=== PATIENT | female | born 1960 | race Caucasian/White ===

== ENCOUNTER 2018-02-13 17:00 | Inpatient (IN) | payer OTHER ==
[2018-02-13] MEDS ORDERED: HYDROmorphone 0.5 MG/0.5 ML SYRINGE IVPUSH ONE ×2 (17:11→18:19)
[2018-02-13] MEDS ORDERED: Metoclopramide 10 MG/2 ML SDV IVPUSH ONE (17:12)
[2018-02-13] MEDS ORDERED: Sodium Chloride 0.9% 1,000 ML IV SCH (17:15)
--- NOTE | 2018-02-13 17:16 | EDM.PDOC ---
ED HPI GENERAL MEDICAL PROBLEM - General Chief Complaint: Trauma Stated Complaint: [facility] Time Seen by Provider: 02/13/18 17:11 Source of Information: Reports: Patient, EMS History Limitations: Reports: No Limitations - History of Present Illness INITIAL COMMENTS - FREE TEXT/NARRATIVE: 57-year-old female brought to the ED by [facility] helicopter service. [place] [facility] [place]. She members the horse bucking but does not remember anything else about the injury in terms of landing on the ground. The next thing she remembers is she was being followed up with blankets by her friends. There was a balanced they were not reachable by any road. She was too injured to bring out but horse back. Therefore the helicopter was summoned. He was able to land a short ways away and they were able to get her on a stretcher and into the helicopter. Chief complaint is severe pain right scapula upper back right shoulder clavicle and right upper ribs. It's unclear if she had her head or lost consciousness. I suspect she may have had the wind knocked out of her. She has no injuries below the waist. Benign abdominal examination some pain to palpation right upper anterior ribs to 3 and 4. Mid clavicle is also tender. Distal clavicle over the before meals joint is tender. She has pain with any movement of the right shoulder. Pain over her right scapula but no solomon abrasions or contusions on her back and no evidence of any spinous process malalignment thoracic or lumbar spine. Onset: Today Onset Date: 02/13/18 Onset Time: 16:15 Duration: Hour(s): (One hour ago.) Location: Reports: Head, Neck, Chest (Posterior chest), Upper Extremity, Right ( Right shoulder and clavicle and upper ribs.) Quality: Reports: Ache, Throbbing Severity: Moderate Improves with: Reports: Rest Worsens with: Reports: Movement (Any movement of the right humerus causes pain in the shoulder and shoulder blade.) Context: Reports: Trauma (Bucked off a horse.). Denies: Activity, Exercise, Lifting, Sick Contact Associated Symptoms: Reports: No Other Symptoms, Nausea/Vomiting (Mild nausea.) . 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 (see below) Right Shoulder Pain Score (Numeric/FACES): 8 - Related Data Allergies Allergy/AdvReac Type Severity Reaction Status Date / Time aspirin Allergy Cannot Verified 02/13/18 17:33 Remember naldecon Allergy Cannot Uncoded 02/13/18 17:33 Remember Home Meds: Home Meds Ascorbate Calcium [Vitamin C] 02/13/18 [History] Citalopram Hydrobromide [Celexa] 02/13/18 [History] Ferrous Sulfate [Iron] 02/13/18 [History] Omeprazole 02/13/18 [History] Pramipexole Di-HCl [Mirapex] 2 mg PO BID 02/13/18 [History] Zolpidem Tartrate [Ambien] 5 mg PO ASDIRECTED PRN 02/13/18 [History] Past Medical History Neurological History: Reports: Other (See Below) (Restless leg syndrome.) Psychiatric History: Reports: Anxiety, Depression, Other (See Below) (Insomnia.) Hematologic History: Reports: Anemia, Iron Deficiency - Past Surgical History GI Surgical History: Reports: Bariatric Procedure (LAP-BAND procedure.) Female Surgical History: Reports: Section (2.) Review of Systems - Review of Systems Review Of Systems: See Below Constitutional: Denies: Chills, Diaphoresis, Weakness, Other Eyes: Denies: No Symptoms, Blindness, Blurred Vision, Drainage, Foreign Body Sensation, Inflammation, Pain, Photophobia Ears: Reports: No Symptoms Nose: Reports: No Symptoms Mouth/Throat: Reports: No Symptoms Respiratory: Reports: Shortness of Breath (Can take a full deep breath out without having pain in her right back) Cardiovascular: Reports: No Symptoms ( and upper ribs.) GI/Abdominal: Reports: No Symptoms Genitourinary: Reports: No Symptoms Musculoskeletal: Reports: Shoulder Pain (Right shoulder pain with any movement) Skin: Reports: No Symptoms ( i.e. attempt to abduct the shoulder causing significant pain in the shoulder joint from blade area.) Neurological: Reports: Confusion Psychiatric: Reports: No Symptoms (Confusion for what is happened to her i.e. amnesia for the event.) ED EXAM, GENERAL - Physical Exam Exam: See Below Exam Limited By: No Limitations General Appearance: Alert, WD/WN, Moderate Distress Eye Exam: Bilateral Eye: Normal Inspection Ears: Normal TMs Throat/Mouth: Normal Inspection, Normal Lips, Normal Oropharynx, Other (No injury to the oral cavity. No malocclusion.) Head: Atraumatic, Normocephalic, Other (No palpable deformities. She does appear to have a possible hematoma) Neck: Tender Lateral (Minimal tenderness right lateral cervical spine more at the juncture of the paraspinal muscles with the trapezius muscle on the right side.) Respiratory/Chest: Lungs Clear, Normal Breath Sounds, Chest Non-Tender, Respiratory Distress (Mild tachypnea. Not able to take a full deep breath.), Other (No subcutaneous emphysema.). No: Crackles, Rales, Rhonchi, Wheezing Peripheral Pulses: 2+: Radial (L), Radial (R), Posterior Tibial (L), Posterior Tibial (R), Dorsalis Pedis (L), Dorsalis Pedis (R) GI/Abdominal: Normal Bowel Sounds, Soft, Non-Tender, No Organomegaly, No Abnormal Bruit, No Mass, Pelvis Stable, Other (Multiple abdominal wall surgeries with multiple scars. There is ever evidence of intertrigo and lower abdominal skin folds) Back Exam: Other (When we set her up she had no obvious abrasions contusions or deformities to the thoracic or lumbar spine. Her pain is primarily over the right scaphoid and paraspinal musculature.) Extremities: Other (Limited range of motion of right arm especially abduction causes increased pain at the shoulder and scapular area. There is no fracture of humerus and she has normal pronation supination at the elbow with good distal pulses to her wrist.) Neurological: Alert ( Ankle.), Oriented, CN II-XII Intact, Normal Cognition, No Motor/Sensory Deficits Psychiatric: Anxious, Other Skin Exam: Warm, Dry, Intact (In obvious pain and discomfort.), Normal Color, No Rash EKG INTERPRETATION EKG Date: 02/13/18 Time: 19:18 Rhythm: NSR Rate (Beats/Min): 97 [place]: Normal P-Wave: Present (First-degree AV block.) QRS: Other (Mildly decreased voltage in the precordial leads. Chest) ST-T: Normal QT: Normal EKG Interpretation Comments: Borderline ECG Course - Vital Signs Last Recorded V/S: Last Vital Signs Temp 36.9 C 02/13/18 17:18 Pulse 79 02/13/18 17:18 Resp 13 02/13/18 17:18 BP 145/78 H 02/13/18 17:18 Pulse Ox 97 02/13/18 17:18 - Orders/Labs/Meds Orders: Active Orders 24 hr Category Date Time Status Shoulder Comp Rt [CR] Stat Exams 02/13/18 17:15 Taken Sodium Chloride 0.9% [Normal Saline] 1,000 ml Med 02/13/18 17:15 Active IV ASDIRECTED Sodium Chloride 0.9% [Normal Saline] 100 ml Med 02/13/18 19:00 Active IV ASDIRECTED Medication Orders Sodium Chloride (Normal Saline) 1,000 mls @ 150 mls/hr IV ASDIRECTED HARVEY Last Admin: 02/13/18 17:57 Dose: 150 mls/hr Sodium Chloride (Normal Saline) 100 mls @ 60 mls/hr IV ASDIRECTED HARVEY Labs: Laboratory Tests 02/13/18 02/13/18 Range/Units 17:15 17:15 WBC 10.94 H (3.98-10.04) K/mm3 RBC 4.33 (3.98-5.22) M/mm3 Hgb 12.7 (11.2-15.7) gm/L Hct 39.7 (34.1-44.9) % MCV 91.7 (79.4-94.8) fl MCH 29.3 (25.6-32.2) pg MCHC 32.0 L (32.2-35.5) g/dl RDW Std Deviation 47.5 H (36.4-46.3) fL Plt Count 263 (182-369) K/mm3 MPV 9.9 (9.4-12.3) fl Neutrophils % (Manual) 84 H (40-60) % Band Neutrophils % 0 (0-10) % Lymphocytes % (Manual) 12 L (20-40) % Atypical Lymphs % 0 % Monocytes % (Manual) 4 (2-10) % Eosinophils % (Manual) 0 L (0.7-5.8) % Basophils % (Manual) 0 L (0.1-1.2) Platelet Estimate Adequate Plt Morphology Comment Normal RBC Morph Comment Normal Sodium 138 (136-145) mEq/L Potassium 4.0 (3.5-5.1) mEq/L Chloride 105 (98-107) mEq/L Carbon Dioxide 27 (21-32) mEq/L Anion Gap 10.0 (5-15) BUN 14 (7-18) mg/dL Creatinine 0.9 (0.55-1.02) mg/dL Est Cr Clr Drug Dosing 60.27 mL/min Estimated GFR (MDRD) > 60 (>60) mL/min BUN/Creatinine Ratio 15.6 (14-18) Glucose 118 H (74-106) mg/dL Calcium 8.9 (8.5-10.1) mg/dL Total Bilirubin 0.3 (0.2-1.0) mg/dL AST 19 (15-37) U/L ALT 24 (14-59) U/L Alkaline Phosphatase 86 (46-116) U/L Total Protein 7.4 (6.4-8.2) g/dl Albumin 4.0 (3.4-5.0) g/dl Globulin 3.4 gm/dL Albumin/Globulin Ratio 1.2 (1-2) Meds: Medications Generic Name Dose Route Start Last Admin Trade Name Freq PRN Reason Stop Dose Admin Sodium Chloride 1,000 mls @ 150 mls/hr 02/13/18 17:15 02/13/18 17:57 Normal Saline IV 150 mls/hr ASDIRECTED HARVEY Administration Sodium Chloride 100 mls @ 60 mls/hr 02/13/18 19:00 Normal Saline IV ASDIRECTED HARVEY Discontinued Medications Generic Name Dose Route Start Last Admin Trade Name Ira PRN Reason Stop Dose Admin Hydromorphone HCl 0.5 mg 02/13/18 17:11 02/13/18 17:57 Dilaudid IVPUSH 02/13/18 17:12 0.5 mg ONETIME ONE Administration Hydromorphone HCl 1 mg 02/13/18 18:19 02/13/18 18:59 Dilaudid IVPUSH 02/13/18 18:20 1 mg ONETIME ONE Administration Iopamidol 100 ml 02/13/18 18:49 Isovue-370 (76%) IVPUSH 02/13/18 18:50 ONETIME ONE Iopamidol 50 ml 02/13/18 18:49 Isovue-370 (76%) IVPUSH 02/13/18 18:50 ONETIME ONE Metoclopramide HCl 10 mg 02/13/18 17:12 02/13/18 17:57 Reglan IVPUSH 02/13/18 17:13 10 mg ONETIME ONE Administration Pramipexole Dihydrochloride 1 mg 02/13/18 18:21 Mirapex PO 02/13/18 18:22 ONETIME ONE Sodium Chloride 10 ml 02/13/18 18:49 Saline Flush FLUSH 02/13/18 18:50 ONETIME ONE - Radiology Interpretation Free Text/Narrative:: 57-year-old female presents to the ED after being [place]ed [place] [facility] [place]. They were in an area that was not amenable to reaching her by ground ambulance. Therefore the helicopter service was utilized to provide rescue. They were able to land very close to the patient. With numerous personnel they were able to load her up onto a gurney and get her into the helicopter. She has received fentanyl 100 g intravenously en route to the hospital which has helped alleviate some of her pain. On examination she has amnesia for the event and I'm unclear whether she had the wind knocked out of her she actually had a closed head injury. She seems to have mild hematoma right occipital scalp No blood behind the eardrums. She does not appear to have any intraoral injuries or injuries to the tongue. Anterior neck and facial structures are normal. She has marked pain to palpation on the superior aspect of the right trapezius levator scapula and the shoulder blade itself. Any movement particularly abduction of the shoulder causes increased pain in the shoulder and scapular area. There is pain over the distal clavicle before meals joint and upper ribs to 3 and 4 on the right side without any obvious subcutaneous emphysema. Good air entry to both lung humphrey. Benign abdominal examination. Pelvis examination with full range of motion of her lower extremities with internal/external rotation fu and no pain in her back or pelvis. No pain to palpation of her lumbar or thoracic spine except just to the right of the mid thoracic spine and over the scapula on the right side. Suspects fracture body of scapula. Plan CT head CT neck CT chest plain films of the right shoulder. Give Dilaudid 0.5 mg IV in the ED with Reglan 10 mg IV. Labs will be collected. IV will be normal saline at 150 mils per hour.ll - Re-Assessments/Exams Free Text/Narrative Re-Assessment/Exam: 02/13/18 18:23 CT head is within normal limits showing no intracranial bleeding or mass effect. No midline shift. No skull fractures identified. CT cervical spine reveals some loss of normal lordotic curvature. Advanced degenerative changes particularly at C5-C6 disc spaces. No fractures or malalignment are appreciated. The chest done without contrast reveals a severely comminuted fracture midshaft of the clavicle. The shoulder blade or scapula is normal. There are fractures of the upper posterior lateral ribs I believe 3,4 and 5. There is minimal contusion to the long under the rib fractures. No pneumothorax. On close inspection of the great vessels without contrast does appear there might be some fluid outside the arch of the aorta and further down the ascending aorta or thoracic aorta. Therefore CT of the chest will be repeated with IV contrast to achieve an aortogram. Patient is having some central chest discomfort at this time. She is asking for more analgesia. Will be given Dilaudid 1 mg IV. Secondly she is asking to have her Mirapex 1 mg given as she has severe restless leg syndrome takes this medication 4 times daily. This will give with a small sip of water. 02/13/18 18:27 Labs reveal a white count that is mildly elevated at 10.94. Differential is pending. Hemoglobin is 12.7 with hematocrit of 39.7. Platelet count is 263,000. Sodium is 138 with a potassium of 4.0. Coronal 5 with a bicarbonate of 27. And a gap is 10.0. BUN is 14. Creatinine is 0.9. Estimated GFR is greater than 60. No contraindication to IV contrast. Glucose is 118. Calcium is 8.9. Liver function is normal. 02/13/18 19:10 CT chest with contrast was completed. Dr. Wiggins has read this scan. He reports previously noted soft tissue density next to the ascending aorta and arch of aorta is felt to represent fluid and appears separate from the aortic arch likely represents a slightly superior extension of the pericardial recess. An incidental finding. Aorta shows no other abnormality pulmonary arteries appear to be within normal limits other portions of the mediastinal structures are normal. Kidneys are symmetric in enhancement without any contrast leak. Rib fractures and right clavicle fracture are again appreciated. Patient is much more comfortable with the Dilaudid 1 mg IV. We do not have any Mirapex in the hospital and her friends are bringing her medication to the hospital at this time. [place] and the plan will be to admit her to the hospital under the care of Dr. Caicedo trauma surgeon. I have spoken with him and the plan will be to admit to the med surgery floor on telemetry. Plan will be to have Dr. Lau see her in consultation tomorrow with a possible view to pinning of her right clavicular fracture. I did speak with Dr. Lau in this regard and he will tentatively see her tomorrow on the rain. Departure - Departure Time of Disposition: 19:45 Disposition: Admitted As Inpatient 67 Condition: Fair Clinical Impression: Multiple trauma, Contusion of right shoulder or upper extremity Fracture, ribs Qualifiers: Encounter type: initial encounter Rib fracture type: multiple ribs Fracture type: closed Laterality: right Qualified Code(s): S22.41XA - Multiple fractures of ribs, right side, initial encounter for closed fracture - Discharge Information Forms: ED Department Discharge - My Orders Last 24 Hours: My Active Orders 02/13/18 17:15 Shoulder Comp Rt [CR] Stat Sodium Chloride 0.9% [Normal Saline] 1,000 ml IV ASDIRECTED 02/13/18 19:00 Sodium Chloride 0.9% [Normal Saline] 100 ml IV ASDIRECTED - Assessment/Plan Last 24 Hours: My Active Orders 02/13/18 17:15 Shoulder Comp Rt [CR] Stat Sodium Chloride 0.9% [Normal Saline] 1,000 ml IV ASDIRECTED 02/13/18 19:00 Sodium Chloride 0.9% [Normal Saline] 100 ml IV ASDIRECTED
--- NOTE | 2018-02-13 17:59 | CT ---
Head CT Technique: Multiple axial sections through the brain were obtained. Intravenous contrast was not utilized. Comparison: No previous intracranial imaging. Findings: Ventricles along with basal cisterns and sulci over the convexities are within normal limits for the patient's age. No abnormal parenchymal densities are seen. No evidence of intracranial hemorrhage. No midline shift or mass effect is seen. No acute calvarial abnormality is seen on bone window settings. Visualized sinuses are clear. Impression: 1. Nothing acute is identified on noncontrast head CT exam. Diagnostic code #1
--- NOTE | 2018-02-13 18:03 | CT ---
CT cervical spine Technique: Multiple axial sections through the cervical spine were obtained from above C1 inferiorly to the top of T2. Reconstructed sagittal and coronal images were reviewed. Comparison: No previous study. Findings: Severe disc space narrowing is noted at C4-C5, C5-C6, C6-C7 as well as moderate disc space narrowing C7-T1 and T1-T2. Small disc protrusion is seen into the superior endplate of T2 which appears to be old. Cyst is noted within the superior endplate of C7. Slight vacuum phenomena is seen within the C6-C7 disc. Posterior osteophytes are noted at C4-C5 through C6-C7. Degenerative apophyseal change is noted which is most severe at C7-T1 causing slight spondylolisthesis. Posterior skull base is intact. Vertebral bodies and posterior arches are intact with no fracture being seen. Mild right-sided neural foraminal stenosis is noted at C5-C6. Moderate bilateral neural foraminal stenosis noted at C4-C5. No bony central canal stenosis is seen. Degenerative spurring is noted within the uncovertebral joints at C4-C5, C5-C6 and C6-C7. Mild degenerative change is also noted within the temporomandibular joints. Impression: 1. Diffuse degenerative change as noted above. 2. No acute fracture or acute subluxation is seen. Diagnostic code #2
--- NOTE | 2018-02-13 18:11 | CT ---
CT thoracic spine Technique: Multiple axial sections through the thoracic spine were obtained. Reconstructed sagittal and coronal images were reviewed. Findings: Disc space narrowing within the cervical spine is seen. Mild scattered areas of disc space narrowing as well as anterior osteophytes are seen within the thoracic spine. Vertebral body heights are maintained. No fracture is seen within the thoracic spine. No abnormal subluxation is seen. Mild scattered degenerative change within the apophyseal joints is seen. Scoliosis is also noted. Impression: 1. Degenerative change and scoliosis. 2. Nothing acute is seen on CT study of the thoracic spine. Diagnostic code #2
--- NOTE | 2018-02-13 18:11 | CT ---
CT chest Technique: Multiple axial sections through the chest were obtained. Intravenous contrast was not utilized which limits evaluation of the great vessels. Findings: Right clavicular fracture is seen which is slightly comminuted and mildly displaced. Mildly displaced right-sided rib fracture is seen within the fourth and fifth ribs. Possible minimal nondisplaced fracture within the sixth rib. Mediastinum and hilar regions show no adenopathy or mass. Very minimal coronary artery calcification is seen. Lap band is present. There is a low-density area seen next to the aortic arch. Uncertain if this is vascular related and contrast-enhanced study as an aortogram is recommended. Slight parenchymal density is noted within the right upper lung felt compatible with minimal contusion as this is in the area of rib fractures. Lungs otherwise are clear. No pleural effusions or pneumothorax is seen. Very small subpleural nodule measuring 3.8 mm is seen within the left base. Impression: 1. Right clavicular fracture. 2. 2 or possibly 3 right-sided rib fractures within the fourth, fifth and possibly sixth rib. 3. Slight parenchymal contusion within the lung adjacent to the rib fractures. 4. 3.8 mm subpleural nodule within the left base. If patient is not a smoker this can be ignored. If patient is a smoker, recommend noncontrast chest CT in one year. 5. Small soft tissue density adjacent to the aortic arch and uncertain if this is vascular related. If patient has no contraindications to contrast, recommend contrast CT as an aortogram study to further evaluate. Diagnostic code #5
[2018-02-13] MEDS ORDERED: Pramipexole 0.5 MG Tab PO ONE (18:21)
[2018-02-13] MEDS ORDERED: Iopamidol 755 Mg/ML 100 ML Bottle IVPUSH ONE (18:49)
[2018-02-13] MEDS ORDERED: Iopamidol 755 MG/ML 50 ML Bottle IVPUSH ONE (18:49)
[2018-02-13] MEDS ORDERED: Sodium Chloride 0.9% 10 ML Syringe FLUSH ONE (18:49)
--- NOTE | 2018-02-13 18:56 | CT ---
CT chest (with contrast) Technique: Multiple axial sections were obtained through the chest with intravenous contrast. Study performed as an aortogram exam. Findings: Soft tissue density is seen next to the ascending aorta. This is felt to represent fluid and appears separate from the aortic arch and likely represents a slightly superior extension of the pericardial recess. This is an incidental finding. Aorta shows no abnormality. Pulmonary arteries appear within normal limits. Other portions of the mediastinal structures are normal. Kidneys are symmetric in enhancement. Rib fractures and right clavicle fracture are again noted. Slight pulmonary contusion is again seen. Small subpleural nodule within the left base is again noted. Impression: 1. Previously noted soft tissue density is separate from the ascending aorta and is felt compatible with superior extent of the normal pericardial recess containing fluid. This is a normal variant. 2. No great vessel injury is seen. Other findings are noted as described on previous noncontrast chest CT. Diagnostic code #2
[2018-02-13] MEDS ORDERED: Sodium Chloride 0.9% 100 ML IV SCH (19:00)
[2018-02-13] MEDS: HYDROmorphone 0.5 MG/0.5 ML SYRINGE IVPUSH PRN (20:58)
--- NOTE | 2018-02-13 20:59 | PCM.PN ---
- General Info Date of Service: 02/13/18 - Patient Data Vitals - Most Recent: Last Vital Signs Temp 98.4 F 02/13/18 17:18 Pulse 85 02/13/18 20:53 Resp 18 02/13/18 20:53 BP 115/71 02/13/18 20:53 Pulse Ox 98 02/13/18 20:53 Weight - Most Recent: 108.862 kg Lab Results Last 24 Hours: Laboratory Results - last 24 hr 02/13/18 02/13/18 Range/Units 17:15 17:15 WBC 10.94 H (3.98-10.04) K/mm3 RBC 4.33 (3.98-5.22) M/mm3 Hgb 12.7 (11.2-15.7) gm/L Hct 39.7 (34.1-44.9) % MCV 91.7 (79.4-94.8) fl MCH 29.3 (25.6-32.2) pg MCHC 32.0 L (32.2-35.5) g/dl RDW Std Deviation 47.5 H (36.4-46.3) fL Plt Count 263 (182-369) K/mm3 MPV 9.9 (9.4-12.3) fl Neutrophils % (Manual) 84 H (40-60) % Band Neutrophils % 0 (0-10) % Lymphocytes % (Manual) 12 L (20-40) % Atypical Lymphs % 0 % Monocytes % (Manual) 4 (2-10) % Eosinophils % (Manual) 0 L (0.7-5.8) % Basophils % (Manual) 0 L (0.1-1.2) Platelet Estimate Adequate Plt Morphology Comment Normal RBC Morph Comment Normal Sodium 138 (136-145) mEq/L Potassium 4.0 (3.5-5.1) mEq/L Chloride 105 (98-107) mEq/L Carbon Dioxide 27 (21-32) mEq/L Anion Gap 10.0 (5-15) BUN 14 (7-18) mg/dL Creatinine 0.9 (0.55-1.02) mg/dL Est Cr Clr Drug Dosing 60.27 mL/min Estimated GFR (MDRD) > 60 (>60) mL/min BUN/Creatinine Ratio 15.6 (14-18) Glucose 118 H (74-106) mg/dL Calcium 8.9 (8.5-10.1) mg/dL Total Bilirubin 0.3 (0.2-1.0) mg/dL AST 19 (15-37) U/L ALT 24 (14-59) U/L Alkaline Phosphatase 86 (46-116) U/L Total Protein 7.4 (6.4-8.2) g/dl Albumin 4.0 (3.4-5.0) g/dl Globulin 3.4 gm/dL Albumin/Globulin Ratio 1.2 (1-2) Med Orders - Current: Current Medications Hydrocodone Bitart/Acetaminophen ([place] 325-5 Mg) 1 tab PO Q4H PRN PRN Reason: pain Citalopram Hydrobromide (Celexa) 20 mg PO DAILY [facility] Hydromorphone HCl (Dilaudid) 0.5 mg IVPUSH Q2HR PRN PRN Reason: Pain Sodium Chloride (Normal Saline) 1,000 mls @ 150 mls/hr IV ASDIRECTED [facility] Last Admin: 02/13/18 17:57 Dose: 150 mls/hr Sodium Chloride (Normal Saline) 100 mls @ 60 mls/hr IV ASDIRECTED [facility] Last Admin: 02/13/18 19:26 Dose: 60 mls/hr Lactated Ringer's (Ringers, Lactated) 1,000 mls @ 100 mls/hr IV ASDIRECTED [facility] Ketorolac Tromethamine (Toradol) 30 mg IVPUSH Q6H [facility] Stop: 02/14/18 20:01 Ondansetron HCl (Zofran) 4 mg IVPUSH Q8H PRN PRN Reason: Nausea Pramipexole Dihydrochloride (Mirapex) 0.125 mg PO DAILY [facility] Pramipexole Dihydrochloride (Mirapex) 0.25 mg PO DAILY@1200 [facility] Pramipexole Dihydrochloride (Mirapex) 0.375 mg PO BEDTIME [facility] Discontinued Medications Hydromorphone HCl (Dilaudid) 0.5 mg IVPUSH ONETIME ONE Stop: 02/13/18 17:12 Last Admin: 02/13/18 17:57 Dose: 0.5 mg Hydromorphone HCl (Dilaudid) 1 mg IVPUSH ONETIME ONE Stop: 02/13/18 18:20 Last Admin: 02/13/18 18:59 Dose: 1 mg Iopamidol (Isovue-370 (76%)) 100 ml IVPUSH ONETIME ONE Stop: 02/13/18 18:50 Last Admin: 02/13/18 18:30 Dose: 100 ml Iopamidol (Isovue-370 (76%)) 50 ml IVPUSH ONETIME ONE Stop: 02/13/18 18:50 Last Admin: 02/13/18 18:30 Dose: 20 ml Metoclopramide HCl (Reglan) 10 mg IVPUSH ONETIME ONE Stop: 02/13/18 17:13 Last Admin: 02/13/18 17:57 Dose: 10 mg Pramipexole Dihydrochloride (Mirapex) 1 mg PO ONETIME ONE Stop: 02/13/18 18:22 Last Admin: 02/13/18 19:32 Dose: Not Given Sodium Chloride (Saline Flush) 10 ml FLUSH ONETIME ONE Stop: 02/13/18 18:50 Last Admin: 02/13/18 18:30 Dose: 10 ml - Problem List Review Problem List Initiated/Reviewed/Updated: Yes - My Orders Last 24 Hours: My Active Orders 02/13/18 20:00 Ketorolac [Toradol] 30 mg IVPUSH Q6H 02/13/18 20:32 Up to Chair [RC] ASDIRECTED 02/13/18 20:34 SCD [Sequential Compression Device] [OM.PC] Routine 02/13/18 20:41 HYDROmorphone [Dilaudid] 0.5 mg IVPUSH Q2HR PRN 02/13/18 20:44 Notify Provider Consults [RC] ASDIRECTED 02/13/18 20:45 Lactated Ringers [Ringers, Lactated] 1,000 ml IV ASDIRECTED Pramipexole 1 - 3 tab PO ASDIRECTED 02/13/18 20:48 Acetaminophen/HYDROcodone [[place] 325-5 MG] 1 tab PO Q4H PRN 02/13/18 20:49 Ondansetron [Zofran] 4 mg IVPUSH Q8H PRN 02/13/18 21:00 Pramipexole [Mirapex] 0.375 mg PO BEDTIME 02/14/18 05:00 AMYLASE [CHEM] Routine CBC WITH AUTO DIFF [HEME] Routine CMP [COMPREHENSIVE METABOLIC PN,CMP] [CHEM] Routine 02/14/18 08:00 Chest 1V Frontal [CR] Routine 02/14/18 09:00 Citalopram [Celexa] 20 mg PO DAILY 02/14/18 12:00 Pramipexole [Mirapex] 0.25 mg PO DAILY@1200 02/14/18 20:44 Consult to Physician [CONS] Routine 02/14/18 Breakfast Clear Liquid Diet [DIET] - Plan Plan:: H&P dictated JYOTI
[2018-02-13] MEDS: Ketorolac 30 MG/ML SDV IVPUSH SCH (22:42)
[2018-02-13] MEDS: Lactated Ringers 1,000 ML IV SCH (22:57)
[2018-02-13] MEDS: Ondansetron 4 MG/2 ML SDV IVPUSH PRN (22:58)
[2018-02-13] MEDS: Pramipexole 0.25 MG Tab PO SCH (23:05)
[2018-02-13] MEDS: Acetaminophen/HYDROcodone 325-5 MG Tab PO PRN (23:53)
[2018-02-14] MEDS: Ketorolac 30 MG/ML SDV IVPUSH SCH ×4 (02:25→15:14)
--- NOTE | 2018-02-14 02:32 | HP ---
DATE OF ADMISSION: 02/13/2018 HISTORY OF PRESENT ILLNESS: A 57-year-old who was flown out of [facility] after a horse accident by [employer]. The horse shied and twisted to the left, and she was thrown off to the right and landed on her right shoulder and right side. There was some evidence that she had amnesia around the event and possibly some loss of consciousness. She is complaining of pain in the right scapula and right shoulder. She underwent a complete evaluation with a CT of head, neck, chest, and this showed a swelling or fluid collection around the organ which a repeat CT scan with contrast was done showing it to be a fluid that seemed to be separate from the aortic arch. She was found to have fractures of the midshaft of the clavicle on the right and fracture of the upper part of the lateral ribs 3, 4, and 5. There was minimal contusion to the lung. No pneumothorax. Head CT was unremarkable. The patient because of the pain was admitted to the hospital. PAST MEDICAL HISTORY: Restless legs syndrome, some insomnia, anemia and iron-deficiency anemia, history of Lap-Band for treatment of her obesity. PAST SURGICAL HISTORY: Includes in addition to a and the Lap Band, cholecystectomy. REVIEW OF SYSTEMS: Denies any shortness of breath, cough, hoarseness, wheezing, fainting, weakness, numbness, convulsions, diarrhea, abdominal pain, lower extremity pain, left arm pain. No smoking. No drinking. PHYSICAL EXAMINATION: GENERAL: Reveals a patient in moderate pain. VITAL SIGNS: Temperature 36, pulse 79, respirations 13, and blood pressure 145/78. EYES: Sclerae are white. Extraocular muscle motion normal. ORAL CAVITY: Healthy. NECK: Supple. No nodes. No thyromegaly. LUNGS: Clear. No rales, rhonchi, fremitus, dullness. Tenderness over the right lateral ribs. The right clavicle is tender. HEART: Tones regular rate. No S3, S4, or jugular venous distention. ABDOMEN: Soft. No tenderness, guarding, or rebound. EXTREMITIES: Lower extremities; no angulation deformities. Upper extremities; right arm is swathed. Left arm and shoulder unremarkable. SKIN: Warm and dry. NEUROLOGIC: Cranial nerves 3 through 12 intact. No sensorineural deficit. She is alert and cooperative, but some amnesia around the event. ASSESSMENT: 1. Trauma with rib fractures 3, 4, and 5 on the right, nondisplaced. 2. Clavicle fracture on the right. 3. Concussion. PLAN: To admit the patient for pain control. Have the patient seen by Ortho concerning clavicle fracture and I have discussed it with her. MMODAL /[id number]
[2018-02-14] MEDS: HYDROmorphone 0.5 MG/0.5 ML SYRINGE IVPUSH PRN ×3 (02:38→12:50)
[2018-02-14] MEDS: Acetaminophen/HYDROcodone 325-5 MG Tab PO PRN ×4 (07:00→21:35)
--- NOTE | 2018-02-14 07:25 | CR ---
Right shoulder: Three views of the right shoulder were obtained. Slightly comminuted and mildly displaced mid right clavicle fracture is seen. Rib fractures that were seen on CT exam are partially visualized on this exam. Glenohumeral joint is normal. No additional abnormality is seen. Impression: 1. Right clavicle fracture as well as partially visualized rib fractures. 2. No additional abnormality is noted. Diagnostic code #3
--- NOTE | 2018-02-14 09:04 | PCM.CONS ---
<Fern Dodson - Last Filed: 02/14/18 16:32> H&P History of Present Illness - General Date of Service: 02/14/18 Admit Problem/Dx: Admission Diagnosis/Problem Admission Diagnosis/Problem Multiple trauma to chest Source of Information: Patient, Other (ED and surgeon notes) History Limitations: Reports: No Limitations - History of Present Illness Initial Comments - Free Text/Narative: The pt was bucked off her horse yesterday afternoon when riding in the [facility] with a group of friends. The pt was transported by helicopter from the [facility] to the ED for care. Thorough evaluation and imaging was completed and the pt was noted to have a right clavicle fracture. The pt reports this is her first major injury to her right upper extremity. She is right-handed. Right clavicle pain is increased with mobility and improvements are noted with rest, sling use and PO, as well as IV, pain medication. She had complaints of "rib pain" today also. The pt denied numbness, tingling at the RUE. She denied right elbow or wrist pain. She denied LUE discomfort. She had no complaints at BLE. The pt stated she has ambulated in her room with nursing staff. Right Shoulder Pain Score (Numeric/FACES): 8 - Related Data Allergies/Adverse Reactions: Allergies Allergy/AdvReac Type Severity Reaction Status Date / Time aspirin Allergy Cannot Verified 02/13/18 17:33 Remember dextromethorphan Allergy Cannot Verified 02/14/18 15:13 Remember guaifenesin Allergy Cannot Verified 02/14/18 15:13 Remember Home Medications: Home Meds Ascorbate Calcium [Vitamin C] 500 mg PO DAILY 02/13/18 [History] Citalopram Hydrobromide [Celexa] 20 mg PO DAILY 02/13/18 [History] Ferrous Sulfate [Iron] 650 mg PO DAILY 02/13/18 [History] Omeprazole 20 mg PO DAILY 02/13/18 [History] Pramipexole [Mirapex] 0.125 - 0.375 tab PO ASDIRECTED 02/13/18 [History] Zolpidem Tartrate [Ambien] 5 mg PO BEDTIME PRN 02/14/18 [History] Past Medical History Respiratory History: Reports: Sleep Apnea Other Respiratory History: uses c-pap Gastrointestinal History: Reports: GERD Neurological History: Reports: Other (See Below) Psychiatric History: Reports: Anxiety, Depression Hematologic History: Reports: Anemia, Iron Deficiency - Infectious Disease History Infectious Disease History: Reports: Chicken Pox, Measles, Mumps - Past Surgical History Respiratory Surgical History: Reports: None GI Surgical History: Reports: Bariatric Procedure Other GI Surgeries/Procedures: lap band-2014 Female Surgical History: Reports: Section Social & Family History - Family History Family Medical History: Noncontributory - Tobacco Use Smoking Status *Q: Never Smoker Second Hand Smoke Exposure: No - Caffeine Use Caffeine Use: Reports: Tea - Alcohol Use Days Per Week of Alcohol Use: 1 Number of Drinks Per Day: 0 Total Drinks Per Week: 0 Date of Last Drink: 02/13/18 Time of Last Drink: 14:00 - Recreational Drug Use Recreational Drug Use: No H&P Review of Systems - Review of Systems: Review Of Systems: ROS reveals no pertinent complaints other than HPI. (As per surgeon evsharla. The pt denied other musculoskeletal complaints today aside from those listed in HPI.) Musculoskeletal: Reports: Other (See HPI.) Exam - Exam Exam: See Below - Vital Signs Vital Signs: Last Vital Signs Temp 98.1 F 02/14/18 02:19 Pulse 84 02/14/18 02:19 Resp 18 02/14/18 02:19 BP 117/54 L 02/14/18 02:19 Pulse Ox 96 02/14/18 02:19 Weight: 108.862 kg - Exam General: Alert, Cooperative, Other (Resting in bed with head of bed elevated.) Extremities: Other (Formal right shoulder motion not assessed. C-spine, right wrist and hand motion WFL. NVS intact for BUE and BLE. Tenderness and swelling at right clavicle. No tenderness noted at right elbow, wrist, hand.) - Patient Data Lab Results Last 24 hrs: Laboratory Results - last 24 hr 02/13/18 02/13/18 02/14/18 Range/Units 17:15 17:15 06:02 WBC 10.94 H 6.95 (3.98-10.04) K/mm3 RBC 4.33 3.72 L (3.98-5.22) M/mm3 Hgb 12.7 10.8 L (11.2-15.7) gm/L Hct 39.7 34.8 (34.1-44.9) % MCV 91.7 93.5 (79.4-94.8) fl MCH 29.3 29.0 (25.6-32.2) pg MCHC 32.0 L 31.0 L (32.2-35.5) g/dl RDW Std Deviation 47.5 H 48.2 H (36.4-46.3) fL Plt Count 263 221 (182-369) K/mm3 MPV 9.9 10.1 (9.4-12.3) fl Neut % (Auto) 69.2 (34.0-71.1) % Lymph % (Auto) 22.9 (19.3-51.7) % [place] % (Auto) 6.3 (4.7-12.5) % Eos % (Auto) 1.4 (0.7-5.8) Baso % (Auto) 0.1 (0.1-1.2) % Neut # (Auto) 4.80 (1.56-6.13) K/mm3 Lymph # (Auto) 1.59 (1.18-3.74) K/mm3 [place] # (Auto) 0.44 H (0.24-0.36) K/mm3 Eos # (Auto) 0.10 (0.04-0.36) K/mm3 Baso # (Auto) 0.01 (0.01-0.08) K/mm3 Neutrophils % (Manual) 84 H (40-60) % Band Neutrophils % 0 (0-10) % Lymphocytes % (Manual) 12 L (20-40) % Atypical Lymphs % 0 % Monocytes % (Manual) 4 (2-10) % Eosinophils % (Manual) 0 L (0.7-5.8) % Basophils % (Manual) 0 L (0.1-1.2) Platelet Estimate Adequate Plt Morphology Comment Normal RBC Morph Comment Normal Sodium 138 (136-145) mEq/L Potassium 4.0 (3.5-5.1) mEq/L Chloride 105 (98-107) mEq/L Carbon Dioxide 27 (21-32) mEq/L Anion Gap 10.0 (5-15) BUN 14 (7-18) mg/dL Creatinine 0.9 (0.55-1.02) mg/dL Est Cr Clr Drug Dosing 60.27 mL/min Estimated GFR (MDRD) > 60 (>60) mL/min BUN/Creatinine Ratio 15.6 (14-18) Glucose 118 H (74-106) mg/dL Calcium 8.9 (8.5-10.1) mg/dL Total Bilirubin 0.3 (0.2-1.0) mg/dL AST 19 (15-37) U/L ALT 24 (14-59) U/L Alkaline Phosphatase 86 (46-116) U/L Total Protein 7.4 (6.4-8.2) g/dl Albumin 4.0 (3.4-5.0) g/dl Globulin 3.4 gm/dL Albumin/Globulin Ratio 1.2 (1-2) Amylase (25-115) U/L 02/14/18 Range/Units 06:02 WBC (3.98-10.04) K/mm3 RBC (3.98-5.22) M/mm3 Hgb (11.2-15.7) gm/L Hct (34.1-44.9) % MCV (79.4-94.8) fl MCH (25.6-32.2) pg MCHC (32.2-35.5) g/dl RDW Std Deviation (36.4-46.3) fL Plt Count (182-369) K/mm3 MPV (9.4-12.3) fl Neut % (Auto) (34.0-71.1) % Lymph % (Auto) (19.3-51.7) % [place] % (Auto) (4.7-12.5) % Eos % (Auto) (0.7-5.8) Baso % (Auto) (0.1-1.2) % Neut # (Auto) (1.56-6.13) K/mm3 Lymph # (Auto) (1.18-3.74) K/mm3 [place] # (Auto) (0.24-0.36) K/mm3 Eos # (Auto) (0.04-0.36) K/mm3 Baso # (Auto) (0.01-0.08) K/mm3 Neutrophils % (Manual) (40-60) % Band Neutrophils % (0-10) % Lymphocytes % (Manual) (20-40) % Atypical Lymphs % % Monocytes % (Manual) (2-10) % Eosinophils % (Manual) (0.7-5.8) % Basophils % (Manual) (0.1-1.2) Platelet Estimate Plt Morphology Comment RBC Morph Comment Sodium 135 L (136-145) mEq/L Potassium 3.7 (3.5-5.1) mEq/L Chloride 102 (98-107) mEq/L Carbon Dioxide 27 (21-32) mEq/L Anion Gap 9.7 (5-15) BUN 13 (7-18) mg/dL Creatinine 0.8 (0.55-1.02) mg/dL Est Cr Clr Drug Dosing 67.80 mL/min Estimated GFR (MDRD) > 60 (>60) mL/min BUN/Creatinine Ratio 16.3 (14-18) Glucose 88 (74-106) mg/dL Calcium 8.4 L (8.5-10.1) mg/dL Total Bilirubin 0.5 (0.2-1.0) mg/dL AST 29 (15-37) U/L ALT 24 (14-59) U/L Alkaline Phosphatase 80 (46-116) U/L Total Protein 6.4 (6.4-8.2) g/dl Albumin 3.3 L (3.4-5.0) g/dl Globulin 3.1 gm/dL Albumin/Globulin Ratio 1.1 (1-2) Amylase 20 L (25-115) U/L Result Diagrams: 02/14/18 06:02 02/14/18 06:02 Consult PN Assessment/Plan Problem List Initiated/Reviewed/Updated: Yes My Orders Last 24 Hours: My Active Orders 02/14/18 07:22 Clavicle Rt [CR] Routine Plan: ED notes and images pertinent to orthopedics were reviewed. Right mid-shaft clavicle fracture noted with shoulder films. Order placed for pt to have dedicated view of the right clavicle. [employer] ordered. Further orders per admitting provider. ADDENDUM: Clavicle films obtained and no significant displacement of comminuted mid-shaft right clavicle fx noted. The fx can be treated conservatively. The pt plans to return to [place] where she lives and is to follow-up with orthopedics there. She will remain in sling at this time. Dr. Lau evaluated the pt and determined the pt's plan of care. Requesting Provider: Dr. Caicedo Patient History Reviewed: Yes Admission H&P Reviewed: Yes <Adam Lau O - Last Filed: 02/15/18 07:07> H&P History of Present Illness - General Admit Problem/Dx: Admission Diagnosis/Problem Admission Diagnosis/Problem Multiple trauma to chest Exam - Vital Signs Vital Signs: Last Vital Signs Temp 36.7 C 02/15/18 02:03 Pulse 69 02/15/18 02:46 Resp 14 02/15/18 02:03 BP 108/73 02/15/18 02:03 Pulse Ox 93 L 02/15/18 02:46 - Patient Data Lab Results Last 24 hrs: Laboratory Results - last 24 hr 02/15/18 Range/Units 05:34 WBC 4.97 (3.98-10.04) K/mm3 RBC 3.75 L (3.98-5.22) M/mm3 Hgb 11.0 L (11.2-15.7) gm/L Hct 34.2 (34.1-44.9) % MCV 91.2 (79.4-94.8) fl MCH 29.3 (25.6-32.2) pg MCHC 32.2 (32.2-35.5) g/dl RDW Std Deviation 46.2 (36.4-46.3) fL Plt Count 212 (182-369) K/mm3 MPV 9.6 (9.4-12.3) fl Result Diagrams: 02/15/18 05:34 02/14/18 06:02 Consult PN Assessment/Plan Plan: Patient was seen and examined and agree with plan of care. Patient will be no lifting, carrying, pushing, or pulling to right upper extremity. Patient may do codmans and will be seen by OT and PT. We will have the patient follow up with an orthopedic surgeon back home within two weeks. Did discuss with her and the family that at this time it can be treated non-operatively if they would choose that route and that if it displaces further they can discuss with a local orthopedic surgeon possible fixation in the future.
[2018-02-14] MEDS: Ondansetron 4 MG/2 ML SDV IVPUSH PRN (09:10)
[2018-02-14] MEDS: Lactated Ringers 1,000 ML IV SCH ×2 (09:13→19:32)
--- NOTE | 2018-02-14 09:35 | CR ---
Right clavicle: Two views of the right clavicle were obtained. Comparison: Prior right shoulder study of 02/13/18. Slightly comminuted and mildly displaced fracture is seen within the mid clavicle. Findings are stable from previous exam. No additional abnormality is seen on right clavicle study. Impression: 1. Stable appearing right clavicle fracture. Diagnostic code #3
--- NOTE | 2018-02-14 09:38 | CR ---
Chest: Frontal view of the chest was obtained. Comparison: Prior chest CT of 02/13/18. Pleural density is noted along the lateral right upper chest most likely representing slight pleural hematoma from the previous rib fractures. Mildly displaced clavicle fracture is noted. Lungs otherwise are clear. Heart size appears stable. Tortuous thoracic aorta is seen. Impression: 1. Pleural density within the lateral right upper chest most likely due to pleural hematoma from previous rib fractures. 2. Right clavicle fracture. No other acute finding is seen. Diagnostic code #3
[2018-02-14] MEDS: Citalopram 20 MG Tab PO SCH (10:04)
[2018-02-14] MEDS: Pramipexole 0.25 MG Tab PO SCH ×3 (10:04→20:05)
--- NOTE | 2018-02-14 15:07 | PCM.PN ---
- General Info Date of Service: 02/14/18 Functional Status: Reports: Pain Controlled - Review of Systems Pulmonary: Reports: No Symptoms, Other (pain from rib fracture ) Cardiovascular: Reports: No Symptoms Gastrointestinal: Reports: No Symptoms - Patient Data Vitals - Most Recent: Last Vital Signs Temp 98.1 F 02/14/18 02:19 Pulse 84 02/14/18 02:19 Resp 18 02/14/18 02:19 BP 117/54 L 02/14/18 02:19 Pulse Ox 96 02/14/18 02:19 Weight - Most Recent: 108.862 kg I&O - Last 24 Hours: Intake & Output 02/13/18 02/14/18 02/14/18 23:59 07:59 15:59 Intake Total 1670 Output Total 1500 Balance 170 Lab Results Last 24 Hours: Laboratory Results - last 24 hr 02/13/18 02/13/18 02/14/18 Range/Units 17:15 17:15 06:02 WBC 10.94 H 6.95 (3.98-10.04) K/mm3 RBC 4.33 3.72 L (3.98-5.22) M/mm3 Hgb 12.7 10.8 L (11.2-15.7) gm/L Hct 39.7 34.8 (34.1-44.9) % MCV 91.7 93.5 (79.4-94.8) fl MCH 29.3 29.0 (25.6-32.2) pg MCHC 32.0 L 31.0 L (32.2-35.5) g/dl RDW Std Deviation 47.5 H 48.2 H (36.4-46.3) fL Plt Count 263 221 (182-369) K/mm3 MPV 9.9 10.1 (9.4-12.3) fl Neut % (Auto) 69.2 (34.0-71.1) % Lymph % (Auto) 22.9 (19.3-51.7) % [place] % (Auto) 6.3 (4.7-12.5) % Eos % (Auto) 1.4 (0.7-5.8) Baso % (Auto) 0.1 (0.1-1.2) % Neut # (Auto) 4.80 (1.56-6.13) K/mm3 Lymph # (Auto) 1.59 (1.18-3.74) K/mm3 [place] # (Auto) 0.44 H (0.24-0.36) K/mm3 Eos # (Auto) 0.10 (0.04-0.36) K/mm3 Baso # (Auto) 0.01 (0.01-0.08) K/mm3 Neutrophils % (Manual) 84 H (40-60) % Band Neutrophils % 0 (0-10) % Lymphocytes % (Manual) 12 L (20-40) % Atypical Lymphs % 0 % Monocytes % (Manual) 4 (2-10) % Eosinophils % (Manual) 0 L (0.7-5.8) % Basophils % (Manual) 0 L (0.1-1.2) Platelet Estimate Adequate Plt Morphology Comment Normal RBC Morph Comment Normal Sodium 138 (136-145) mEq/L Potassium 4.0 (3.5-5.1) mEq/L Chloride 105 (98-107) mEq/L Carbon Dioxide 27 (21-32) mEq/L Anion Gap 10.0 (5-15) BUN 14 (7-18) mg/dL Creatinine 0.9 (0.55-1.02) mg/dL Est Cr Clr Drug Dosing 60.27 mL/min Estimated GFR (MDRD) > 60 (>60) mL/min BUN/Creatinine Ratio 15.6 (14-18) Glucose 118 H (74-106) mg/dL Calcium 8.9 (8.5-10.1) mg/dL Total Bilirubin 0.3 (0.2-1.0) mg/dL AST 19 (15-37) U/L ALT 24 (14-59) U/L Alkaline Phosphatase 86 (46-116) U/L Total Protein 7.4 (6.4-8.2) g/dl Albumin 4.0 (3.4-5.0) g/dl Globulin 3.4 gm/dL Albumin/Globulin Ratio 1.2 (1-2) Amylase (25-115) U/L 02/14/18 Range/Units 06:02 WBC (3.98-10.04) K/mm3 RBC (3.98-5.22) M/mm3 Hgb (11.2-15.7) gm/L Hct (34.1-44.9) % MCV (79.4-94.8) fl MCH (25.6-32.2) pg MCHC (32.2-35.5) g/dl RDW Std Deviation (36.4-46.3) fL Plt Count (182-369) K/mm3 MPV (9.4-12.3) fl Neut % (Auto) (34.0-71.1) % Lymph % (Auto) (19.3-51.7) % [place] % (Auto) (4.7-12.5) % Eos % (Auto) (0.7-5.8) Baso % (Auto) (0.1-1.2) % Neut # (Auto) (1.56-6.13) K/mm3 Lymph # (Auto) (1.18-3.74) K/mm3 [place] # (Auto) (0.24-0.36) K/mm3 Eos # (Auto) (0.04-0.36) K/mm3 Baso # (Auto) (0.01-0.08) K/mm3 Neutrophils % (Manual) (40-60) % Band Neutrophils % (0-10) % Lymphocytes % (Manual) (20-40) % Atypical Lymphs % % Monocytes % (Manual) (2-10) % Eosinophils % (Manual) (0.7-5.8) % Basophils % (Manual) (0.1-1.2) Platelet Estimate Plt Morphology Comment RBC Morph Comment Sodium 135 L (136-145) mEq/L Potassium 3.7 (3.5-5.1) mEq/L Chloride 102 (98-107) mEq/L Carbon Dioxide 27 (21-32) mEq/L Anion Gap 9.7 (5-15) BUN 13 (7-18) mg/dL Creatinine 0.8 (0.55-1.02) mg/dL Est Cr Clr Drug Dosing 67.80 mL/min Estimated GFR (MDRD) > 60 (>60) mL/min BUN/Creatinine Ratio 16.3 (14-18) Glucose 88 (74-106) mg/dL Calcium 8.4 L (8.5-10.1) mg/dL Total Bilirubin 0.5 (0.2-1.0) mg/dL AST 29 (15-37) U/L ALT 24 (14-59) U/L Alkaline Phosphatase 80 (46-116) U/L Total Protein 6.4 (6.4-8.2) g/dl Albumin 3.3 L (3.4-5.0) g/dl Globulin 3.1 gm/dL Albumin/Globulin Ratio 1.1 (1-2) Amylase 20 L (25-115) U/L Med Orders - Current: Current Medications Hydrocodone Bitart/Acetaminophen ([place] 325-5 Mg) 1 tab PO Q4H PRN PRN Reason: pain Last Admin: 02/14/18 12:04 Dose: 1 tab Citalopram Hydrobromide (Celexa) 20 mg PO DAILY [facility] Last Admin: 02/14/18 10:04 Dose: 20 mg Enoxaparin Sodium (Lovenox) 40 mg SUBCUT DAILY [facility] Hydromorphone HCl (Dilaudid) 0.5 mg IVPUSH Q2HR PRN PRN Reason: Pain Last Admin: 02/14/18 12:50 Dose: 0.5 mg Lactated Ringer's (Ringers, Lactated) 1,000 mls @ 100 mls/hr IV ASDIRECTED [facility] Last Admin: 02/14/18 09:13 Dose: 100 mls/hr Ketorolac Tromethamine (Toradol) 30 mg IVPUSH Q6H [facility] Stop: 02/14/18 16:01 Last Admin: 02/14/18 10:06 Dose: 30 mg Ondansetron HCl (Zofran) 4 mg IVPUSH Q8H PRN PRN Reason: Nausea Last Admin: 02/14/18 09:10 Dose: 4 mg Pramipexole Dihydrochloride (Mirapex) 0.125 mg PO DAILY [facility] Last Admin: 02/14/18 10:04 Dose: 0.125 mg Pramipexole Dihydrochloride (Mirapex) 0.25 mg PO DAILY@1200 [facility] Last Admin: 02/14/18 12:01 Dose: 0.25 mg Pramipexole Dihydrochloride (Mirapex) 0.375 mg PO BEDTIME [facility] Last Admin: 02/13/18 23:05 Dose: Not Given Discontinued Medications Hydromorphone HCl (Dilaudid) 0.5 mg IVPUSH ONETIME ONE Stop: 02/13/18 17:12 Last Admin: 02/13/18 17:57 Dose: 0.5 mg Hydromorphone HCl (Dilaudid) 1 mg IVPUSH ONETIME ONE Stop: 02/13/18 18:20 Last Admin: 02/13/18 18:59 Dose: 1 mg Sodium Chloride (Normal Saline) 1,000 mls @ 150 mls/hr IV ASDIRECTED [facility] Last Admin: 02/13/18 17:57 Dose: 150 mls/hr Sodium Chloride (Normal Saline) 100 mls @ 60 mls/hr IV ASDIRECTED [facility] Last Admin: 02/13/18 19:26 Dose: 60 mls/hr Iopamidol (Isovue-370 (76%)) 100 ml IVPUSH ONETIME ONE Stop: 02/13/18 18:50 Last Admin: 02/13/18 18:30 Dose: 100 ml Iopamidol (Isovue-370 (76%)) 50 ml IVPUSH ONETIME ONE Stop: 02/13/18 18:50 Last Admin: 02/13/18 18:30 Dose: 20 ml Ketorolac Tromethamine (Toradol) 30 mg IVPUSH Q6H [facility] Stop: 02/14/18 20:01 Last Admin: 02/14/18 02:25 Dose: Not Given Metoclopramide HCl (Reglan) 10 mg IVPUSH ONETIME ONE Stop: 02/13/18 17:13 Last Admin: 02/13/18 17:57 Dose: 10 mg Pramipexole Dihydrochloride (Mirapex) 1 mg PO ONETIME ONE Stop: 02/13/18 18:22 Last Admin: 02/13/18 19:32 Dose: Not Given Sodium Chloride (Saline Flush) 10 ml FLUSH ONETIME ONE Stop: 02/13/18 18:50 Last Admin: 02/13/18 18:30 Dose: 10 ml - Exam Quality Assessment: Supplemental Oxygen General: Alert, Oriented Lungs: Clear to Auscultation, Normal Respiratory Effort Cardiovascular: Regular Rate, Regular Rhythm - Problem List Review Problem List Initiated/Reviewed/Updated: Yes - My Orders Last 24 Hours: My Active Orders 02/13/18 20:32 Up to Chair [RC] ASDIRECTED 02/13/18 20:34 SCD [Sequential Compression Device] [OM.PC] Routine 02/13/18 20:41 HYDROmorphone [Dilaudid] 0.5 mg IVPUSH Q2HR PRN 02/13/18 20:44 Notify Provider Consults [RC] ASDIRECTED 02/13/18 20:45 Lactated Ringers [Ringers, Lactated] 1,000 ml IV ASDIRECTED 02/13/18 20:48 Acetaminophen/HYDROcodone [[place] 325-5 MG] 1 tab PO Q4H PRN 02/13/18 20:49 Ondansetron [Zofran] 4 mg IVPUSH Q8H PRN 02/13/18 21:00 Pramipexole [Mirapex] 0.375 mg PO BEDTIME 02/13/18 23:13 CPAP [RESPCARE] Routine 02/14/18 02:18 Resuscitation Status Routine 02/14/18 04:00 Ketorolac [Toradol] 30 mg IVPUSH Q6H 02/14/18 09:00 Citalopram [Celexa] 20 mg PO DAILY Pramipexole [Mirapex] 0.125 mg PO DAILY 02/14/18 11:47 Oxygen Therapy [RC] ASDIRECTED 02/14/18 12:00 Pramipexole [Mirapex] 0.25 mg PO DAILY@1200 02/14/18 15:15 CBC W/O DIFF,HEMOGRAM [HEME] DAILY Enoxaparin [Lovenox] 40 mg SUBCUT DAILY 02/14/18 20:44 Consult to Physician [CONS] Routine 02/14/18 Breakfast Clear Liquid Diet [DIET] - Plan Plan:: H&P dictated JMB Pt alert VS stable having some pain from the rib fractures and spasum with cought Exam stabl e plan will start flexoral and begin anticoagulation ortho consult in progress
[2018-02-14] MEDS: Enoxaparin 40 MG/0.4 ML Syringe SUBCUT SCH (15:13)
[2018-02-14] MEDS: Cyclobenzaprine 10 MG Tab PO PRN (15:14)
[2018-02-15] MEDS: Cyclobenzaprine 10 MG Tab PO PRN ×2 (02:01→15:44)
[2018-02-15] MEDS: Acetaminophen/HYDROcodone 325-5 MG Tab PO PRN ×5 (03:43→21:57)
[2018-02-15] MEDS: Lactated Ringers 1,000 ML IV SCH (05:34)
[2018-02-15] MEDS: Citalopram 20 MG Tab PO SCH (08:00)
[2018-02-15] MEDS: Enoxaparin 40 MG/0.4 ML Syringe SUBCUT SCH (08:01)
[2018-02-15] MEDS: Pramipexole 0.25 MG Tab PO SCH ×3 (08:01→21:56)
--- NOTE | 2018-02-15 08:11 | CR ---
Chest: Portable view of the chest was obtained. Comparison: Prior chest x-ray of 02/14/18. Right-sided rib fractures are noted. Pleural thickening remains within the upper right chest which is stable. No acute parenchymal densities are seen. Small pneumothorax is seen on current study along the right lateral chest. Heart size and mediastinum are normal. Impression: 1. Right-sided rib fractures with pleural thickening which remains stable. 2. Minimal pneumothorax along the right lateral chest 3. No additional abnormality is appreciated. Diagnostic code #3
--- NOTE | 2018-02-15 12:08 | PCM.PN ---
- General Info Date of Service: 02/15/18 Functional Status: Reports: Pain Controlled - Review of Systems General: Reports: Fatigue Pulmonary: Reports: Other (pain from ribs ) Cardiovascular: Reports: No Symptoms Gastrointestinal: Reports: No Symptoms - Patient Data Vitals - Most Recent: Last Vital Signs Temp 98.1 F 02/15/18 02:03 Pulse 69 02/15/18 02:46 Resp 14 02/15/18 02:03 BP 108/73 02/15/18 02:03 Pulse Ox 93 L 02/15/18 02:46 Weight - Most Recent: 118.025 kg I&O - Last 24 Hours: Intake & Output 02/14/18 02/15/18 02/15/18 23:59 07:59 15:59 Intake Total 3322 2501 240 Output Total 1550 1700 Balance 1772 801 240 Lab Results Last 24 Hours: Laboratory Results - last 24 hr 02/15/18 Range/Units 05:34 WBC 4.97 (3.98-10.04) K/mm3 RBC 3.75 L (3.98-5.22) M/mm3 Hgb 11.0 L (11.2-15.7) gm/L Hct 34.2 (34.1-44.9) % MCV 91.2 (79.4-94.8) fl MCH 29.3 (25.6-32.2) pg MCHC 32.2 (32.2-35.5) g/dl RDW Std Deviation 46.2 (36.4-46.3) fL Plt Count 212 (182-369) K/mm3 MPV 9.6 (9.4-12.3) fl Med Orders - Current: Current Medications Hydrocodone Bitart/Acetaminophen ([place] 325-5 Mg) 1 tab PO Q4H PRN PRN Reason: pain Last Admin: 02/15/18 07:59 Dose: 1 tab Citalopram Hydrobromide (Celexa) 20 mg PO DAILY [facility] Last Admin: 02/15/18 08:00 Dose: 20 mg Cyclobenzaprine HCl (Flexeril) 10 mg PO TID PRN PRN Reason: Pain Last Admin: 02/15/18 02:01 Dose: 10 mg Enoxaparin Sodium (Lovenox) 40 mg SUBCUT DAILY [facility] Last Admin: 02/15/18 08:01 Dose: 40 mg Hydromorphone HCl (Dilaudid) 0.5 mg IVPUSH Q2HR PRN PRN Reason: Pain Last Admin: 02/14/18 12:50 Dose: 0.5 mg Lactated Ringer's (Ringers, Lactated) 1,000 mls @ 100 mls/hr IV ASDIRECTED [facility] Last Admin: 02/15/18 05:34 Dose: 100 mls/hr Ondansetron HCl (Zofran) 4 mg IVPUSH Q8H PRN PRN Reason: Nausea Last Admin: 02/14/18 09:10 Dose: 4 mg Pramipexole Dihydrochloride (Mirapex) 0.125 mg PO DAILY [facility] Last Admin: 02/15/18 08:01 Dose: 0.125 mg Pramipexole Dihydrochloride (Mirapex) 0.25 mg PO DAILY@1200 [facility] Last Admin: 02/14/18 12:01 Dose: 0.25 mg Pramipexole Dihydrochloride (Mirapex) 0.375 mg PO BEDTIME [facility] Last Admin: 02/14/18 20:05 Dose: 0.375 mg Discontinued Medications Hydromorphone HCl (Dilaudid) 0.5 mg IVPUSH ONETIME ONE Stop: 02/13/18 17:12 Last Admin: 02/13/18 17:57 Dose: 0.5 mg Hydromorphone HCl (Dilaudid) 1 mg IVPUSH ONETIME ONE Stop: 02/13/18 18:20 Last Admin: 02/13/18 18:59 Dose: 1 mg Sodium Chloride (Normal Saline) 1,000 mls @ 150 mls/hr IV ASDIRECTED [facility] Last Admin: 02/13/18 17:57 Dose: 150 mls/hr Sodium Chloride (Normal Saline) 100 mls @ 60 mls/hr IV ASDIRECTED [facility] Last Admin: 02/13/18 19:26 Dose: 60 mls/hr Iopamidol (Isovue-370 (76%)) 100 ml IVPUSH ONETIME ONE Stop: 02/13/18 18:50 Last Admin: 02/13/18 18:30 Dose: 100 ml Iopamidol (Isovue-370 (76%)) 50 ml IVPUSH ONETIME ONE Stop: 05/01/18 18:50 Last Admin: 02/13/18 18:30 Dose: 20 ml Ketorolac Tromethamine (Toradol) 30 mg IVPUSH Q6H [facility] Stop: 02/14/18 20:01 Last Admin: 02/14/18 02:25 Dose: Not Given Ketorolac Tromethamine (Toradol) 30 mg IVPUSH Q6H [facility] Stop: 02/14/18 16:01 Last Admin: 02/14/18 15:14 Dose: 30 mg Metoclopramide HCl (Reglan) 10 mg IVPUSH ONETIME ONE Stop: 02/13/18 17:13 Last Admin: 02/13/18 17:57 Dose: 10 mg Pramipexole Dihydrochloride (Mirapex) 1 mg PO ONETIME ONE Stop: 02/13/18 18:22 Last Admin: 02/13/18 19:32 Dose: Not Given Sodium Chloride (Saline Flush) 10 ml FLUSH ONETIME ONE Stop: 02/13/18 18:50 Last Admin: 02/13/18 18:30 Dose: 10 ml - Exam Quality Assessment: Supplemental Oxygen Lungs: Clear to Auscultation, Normal Respiratory Effort Cardiovascular: Regular Rate, Regular Rhythm GI/Abdominal Exam: Normal Bowel Sounds, Soft, Non-Tender, No Organomegaly, No Distention, No Abnormal Bruit, No Mass, Pelvis Stable - Problem List Review Problem List Initiated/Reviewed/Updated: Yes - My Orders Last 24 Hours: My Active Orders 02/14/18 11:47 Oxygen Therapy [RC] ASDIRECTED 02/14/18 12:00 Pramipexole [Mirapex] 0.25 mg PO DAILY@1200 02/14/18 15:06 Cyclobenzaprine [Flexeril] 10 mg PO TID PRN 02/14/18 15:07 Incentive Spirometry [RT Incentive Spirometry] [RC] Q1HWA 02/14/18 15:10 Consult to Financial Adviser [CONS] Routine 02/14/18 15:15 Enoxaparin [Lovenox] 40 mg SUBCUT DAILY 02/14/18 20:44 Consult to Physician [CONS] Routine - Plan Plan:: H&P dictated JMB Pt alert VS stable having some pain from the rib fractures and spasum with cought Exam stabl e plan will start flexoral and begin anticoagulation ortho consult in progress Improving VS good plan will DC IV fluid, give colace and advance diet, and give ativan small does start PT.
[2018-02-15] MEDS ORDERED: LORazepam 2 MG/ML SDV IVPUSH PRN (12:09)
[2018-02-15] MEDS ORDERED: Docusate Sodium 100 MG Cap PO PRN (12:09)
[2018-02-15] MEDS: HYDROmorphone 0.5 MG/0.5 ML SYRINGE IVPUSH PRN (13:38)
[2018-02-16] MEDS: Acetaminophen/HYDROcodone 325-5 MG Tab PO PRN ×2 (04:45→09:01)
[2018-02-16] MEDS: Cyclobenzaprine 10 MG Tab PO PRN ×2 (04:46→21:42)
[2018-02-16] MEDS: Citalopram 20 MG Tab PO SCH (09:00)
[2018-02-16] MEDS: Pramipexole 0.25 MG Tab PO SCH ×3 (09:00→21:42)
[2018-02-16] MEDS: Enoxaparin 40 MG/0.4 ML Syringe SUBCUT SCH (09:02)
[2018-02-16] MEDS: HYDROmorphone 0.5 MG/0.5 ML SYRINGE IVPUSH PRN (10:49)
--- NOTE | 2018-02-16 10:57 | PCM.PN ---
- General Info Date of Service: 02/16/18 Functional Status: Reports: Pain Controlled (but will change to percacett see if I can get better conrol) - Review of Systems General: Reports: No Symptoms Pulmonary: Reports: Other (feel she is dropping her saturations at night will follow this with night time sats) Cardiovascular: Reports: No Symptoms Gastrointestinal: Reports: Constipation - Patient Data Vitals - Most Recent: Last Vital Signs Temp 98.1 F 02/16/18 07:56 Pulse 69 02/16/18 07:56 Resp 18 02/16/18 07:56 BP 139/81 02/16/18 08:24 Pulse Ox 90 L 02/16/18 07:56 Weight - Most Recent: 117.509 kg I&O - Last 24 Hours: Intake & Output 02/15/18 02/16/18 02/16/18 23:59 07:59 15:59 Intake Total 640 1600 Output Total 2600 Balance 640 -1000 Med Orders - Current: Current Medications Hydrocodone Bitart/Acetaminophen ([place] 325-5 Mg) 1 tab PO Q4H PRN PRN Reason: pain Last Admin: 02/16/18 09:01 Dose: 1 tab Citalopram Hydrobromide (Celexa) 20 mg PO DAILY [facility] Last Admin: 02/16/18 09:00 Dose: 20 mg Cyclobenzaprine HCl (Flexeril) 10 mg PO TID PRN PRN Reason: Pain Last Admin: 02/16/18 04:46 Dose: 10 mg Docusate Sodium (Colace) 100 mg PO BID PRN PRN Reason: Constipation Last Admin: 02/15/18 12:25 Dose: 100 mg Enoxaparin Sodium (Lovenox) 40 mg SUBCUT DAILY [facility] Last Admin: 02/16/18 09:02 Dose: 40 mg Hydromorphone HCl (Dilaudid) 0.5 mg IVPUSH Q2HR PRN PRN Reason: Pain Last Admin: 02/16/18 10:49 Dose: 0.5 mg Lorazepam (Ativan) 0.25 mg IVPUSH Q8H PRN PRN Reason: Anxiety Ondansetron HCl (Zofran) 4 mg IVPUSH Q8H PRN PRN Reason: Nausea Last Admin: 02/14/18 09:10 Dose: 4 mg Pramipexole Dihydrochloride (Mirapex) 0.125 mg PO DAILY [facility] Last Admin: 02/16/18 09:00 Dose: 0.125 mg Pramipexole Dihydrochloride (Mirapex) 0.25 mg PO DAILY@1200 [facility] Last Admin: 02/15/18 12:24 Dose: 0.25 mg Pramipexole Dihydrochloride (Mirapex) 0.375 mg PO BEDTIME [facility] Last Admin: 02/15/18 21:56 Dose: 0.375 mg Discontinued Medications Hydromorphone HCl (Dilaudid) 0.5 mg IVPUSH ONETIME ONE Stop: 02/13/18 17:12 Last Admin: 02/13/18 17:57 Dose: 0.5 mg Hydromorphone HCl (Dilaudid) 1 mg IVPUSH ONETIME ONE Stop: 02/13/18 18:20 Last Admin: 02/13/18 18:59 Dose: 1 mg Sodium Chloride (Normal Saline) 1,000 mls @ 150 mls/hr IV ASDIRECTED [facility] Last Admin: 02/13/18 17:57 Dose: 150 mls/hr Sodium Chloride (Normal Saline) 100 mls @ 60 mls/hr IV ASDIRECTED [facility] Last Admin: 02/13/18 19:26 Dose: 60 mls/hr Lactated Ringer's (Ringers, Lactated) 1,000 mls @ 100 mls/hr IV ASDIRECTED [facility] Last Admin: 02/15/18 05:34 Dose: 100 mls/hr Iopamidol (Isovue-370 (76%)) 100 ml IVPUSH ONETIME ONE Stop: 02/13/18 18:50 Last Admin: 02/13/18 18:30 Dose: 100 ml Iopamidol (Isovue-370 (76%)) 50 ml IVPUSH ONETIME ONE Stop: 02/13/18 18:50 Last Admin: 02/13/18 18:30 Dose: 20 ml Ketorolac Tromethamine (Toradol) 30 mg IVPUSH Q6H [facility] Stop: 02/14/18 20:01 Last Admin: 02/14/18 02:25 Dose: Not Given Ketorolac Tromethamine (Toradol) 30 mg IVPUSH Q6H [facility] Stop: 02/14/18 16:01 Last Admin: 02/14/18 15:14 Dose: 30 mg Metoclopramide HCl (Reglan) 10 mg IVPUSH ONETIME ONE Stop: 02/13/18 17:13 Last Admin: 02/13/18 17:57 Dose: 10 mg Pramipexole Dihydrochloride (Mirapex) 1 mg PO ONETIME ONE Stop: 02/13/18 18:22 Last Admin: 02/13/18 19:32 Dose: Not Given Sodium Chloride (Saline Flush) 10 ml FLUSH ONETIME ONE Stop: 02/13/18 18:50 Last Admin: 02/13/18 18:30 Dose: 10 ml - Exam General: Alert, Oriented, Cooperative Lungs: Clear to Auscultation (movement of air is limited ), Normal Respiratory Effort GI/Abdominal Exam: Soft, Non-Tender - Problem List Review Problem List Initiated/Reviewed/Updated: Yes - My Orders Last 24 Hours: My Active Orders 02/15/18 12:08 OT Evaluation and Treatment [CONS] Routine PT Evaluation and Treatment [CONS] Routine 02/15/18 12:09 Docusate Sodium [Colace] 100 mg PO BID PRN LORazepam [Ativan] 0.25 mg IVPUSH Q8H PRN 02/15/18 Lunch Post Surgical Soft [Soft Diet] [DIET] 02/16/18 10:50 Overnight Pulse Oximetry [RC] Click to Edit - Plan Plan:: H&P dictated JMB Pt alert VS stable having some pain from the rib fractures and spasum with cought Exam stabl e plan will start flexoral and begin anticoagulation ortho consult in progress Improving VS good plan will DC IV fluid, give colace and advance diet, and give ativan small does start PT. pt improved somewhat VS stable she is constipated lung stable but has decrease ins saturations will place sepap andfollow with night time saturations will change pain meds to percocet to see if I can wean of dilauid ass improving
[2018-02-16] MEDS ORDERED: Magnesium Citrate Solution 296 ML Bottle PO ONE (11:05)
[2018-02-16] MEDS: Ondansetron 4 MG/2 ML SDV IVPUSH PRN (13:02)
[2018-02-16] MEDS: Acetaminophen/oxyCODONE 325-5 MG Tab PO PRN ×2 (16:03→21:40)
[2018-02-17] MEDS: Acetaminophen/oxyCODONE 325-5 MG Tab PO PRN ×2 (04:07→10:11)
[2018-02-17] MEDS: Cyclobenzaprine 10 MG Tab PO PRN (05:24)
--- NOTE | 2018-02-17 08:02 | CR ---
Chest: Portable view of the chest was obtained. Comparison: Prior chest x-ray 02/17/18. Stable area of pleural thickening within the right upper chest. Partially visualized right sided rib fractures are noted. Lungs shows minimal atelectasis within the lateral left costophrenic angle. Lungs otherwise are clear. Tortuous thoracic aorta is seen. Mildly displaced right clavicle fracture is seen. Impression: 1. Stable chest x-ray. No significant change from prior chest x-ray is seen. Diagnostic code #3
[2018-02-17] MEDS: Citalopram 20 MG Tab PO SCH (08:56)
[2018-02-17] MEDS: Pramipexole 0.25 MG Tab PO SCH ×2 (08:56→11:54)
[2018-02-17] MEDS: Enoxaparin 40 MG/0.4 ML Syringe SUBCUT SCH (08:57)
--- NOTE | 2018-02-17 10:03 | PCM.PN ---
- General Info Date of Service: 02/17/18 - Patient Data Vitals - Most Recent: Last Vital Signs Temp 98.2 F 02/16/18 21:46 Pulse 82 02/17/18 08:55 Resp 20 02/17/18 08:55 BP 136/68 02/17/18 08:55 Pulse Ox 93 L 02/17/18 08:55 Weight - Most Recent: 116.528 kg I&O - Last 24 Hours: Intake & Output 02/16/18 02/17/18 02/17/18 23:59 07:59 15:59 Intake Total 1240 750 Output Total 3000 1200 Balance -1760 -450 Med Orders - Current: Current Medications Citalopram Hydrobromide (Celexa) 20 mg PO DAILY [facility] Last Admin: 02/17/18 08:56 Dose: 20 mg Cyclobenzaprine HCl (Flexeril) 10 mg PO TID PRN PRN Reason: Pain Last Admin: 02/17/18 05:24 Dose: 10 mg Docusate Sodium (Colace) 100 mg PO BID PRN PRN Reason: Constipation Last Admin: 02/15/18 12:25 Dose: 100 mg Enoxaparin Sodium (Lovenox) 40 mg SUBCUT DAILY [facility] Last Admin: 02/17/18 08:57 Dose: 40 mg Hydromorphone HCl (Dilaudid) 0.5 mg IVPUSH Q2HR PRN PRN Reason: Pain Last Admin: 02/16/18 10:49 Dose: 0.5 mg Lorazepam (Ativan) 0.25 mg IVPUSH Q8H PRN PRN Reason: Anxiety Ondansetron HCl (Zofran) 4 mg IVPUSH Q8H PRN PRN Reason: Nausea Last Admin: 02/16/18 13:02 Dose: 4 mg Oxycodone/Acetaminophen ([place] 325-5 Mg) 1 tab PO Q6H PRN PRN Reason: Pain Last Admin: 02/17/18 04:07 Dose: 1 tab Pramipexole Dihydrochloride (Mirapex) 0.125 mg PO DAILY [facility] Last Admin: 02/17/18 08:56 Dose: 0.125 mg Pramipexole Dihydrochloride (Mirapex) 0.25 mg PO DAILY@1200 [facility] Last Admin: 02/16/18 11:51 Dose: 0.25 mg Pramipexole Dihydrochloride (Mirapex) 0.375 mg PO BEDTIME [facility] Last Admin: 02/16/18 21:42 Dose: 0.375 mg Discontinued Medications Hydrocodone Bitart/Acetaminophen ([place] 325-5 Mg) 1 tab PO Q4H PRN PRN Reason: pain Last Admin: 02/16/18 09:01 Dose: 1 tab Hydromorphone HCl (Dilaudid) 0.5 mg IVPUSH ONETIME ONE Stop: 02/13/18 17:12 Last Admin: 02/13/18 17:57 Dose: 0.5 mg Hydromorphone HCl (Dilaudid) 1 mg IVPUSH ONETIME ONE Stop: 02/13/18 18:20 Last Admin: 02/13/18 18:59 Dose: 1 mg Sodium Chloride (Normal Saline) 1,000 mls @ 150 mls/hr IV ASDIRECTED [facility] Last Admin: 02/13/18 17:57 Dose: 150 mls/hr Sodium Chloride (Normal Saline) 100 mls @ 60 mls/hr IV ASDIRECTED [facility] Last Admin: 02/13/18 19:26 Dose: 60 mls/hr Lactated Ringer's (Ringers, Lactated) 1,000 mls @ 100 mls/hr IV ASDIRECTED [facility] Last Admin: 02/15/18 05:34 Dose: 100 mls/hr Iopamidol (Isovue-370 (76%)) 100 ml IVPUSH ONETIME ONE Stop: 02/13/18 18:50 Last Admin: 02/13/18 18:30 Dose: 100 ml Iopamidol (Isovue-370 (76%)) 50 ml IVPUSH ONETIME ONE Stop: 02/13/18 18:50 Last Admin: 02/13/18 18:30 Dose: 20 ml Ketorolac Tromethamine (Toradol) 30 mg IVPUSH Q6H [facility] Stop: 02/14/18 20:01 Last Admin: 02/14/18 02:25 Dose: Not Given Ketorolac Tromethamine (Toradol) 30 mg IVPUSH Q6H [facility] Stop: 02/14/18 16:01 Last Admin: 02/14/18 15:14 Dose: 30 mg Magnesium Citrate (Citrate Of Magnesia) 296 ml PO ONETIME ONE Stop: 02/16/18 11:06 Last Admin: 02/16/18 11:51 Dose: 296 ml Metoclopramide HCl (Reglan) 10 mg IVPUSH ONETIME ONE Stop: 02/13/18 17:13 Last Admin: 02/13/18 17:57 Dose: 10 mg Pramipexole Dihydrochloride (Mirapex) 1 mg PO ONETIME ONE Stop: 02/13/18 18:22 Last Admin: 02/13/18 19:32 Dose: Not Given Sodium Chloride (Saline Flush) 10 ml FLUSH ONETIME ONE Stop: 02/13/18 18:50 Last Admin: 02/13/18 18:30 Dose: 10 ml - Problem List Review Problem List Initiated/Reviewed/Updated: Yes - My Orders Last 24 Hours: My Active Orders 02/16/18 10:50 Overnight Pulse Oximetry [RC] Click to Edit 02/16/18 10:55 Acetaminophen/oxyCODONE [Percocet 325-5 MG] 1 tab PO Q6H PRN 02/17/18 10:02 Ready for Discharge [RC] PER UNIT ROUTINE - Plan Plan:: H&P dictated [facility] Pt alert VS stable having some pain from the rib fractures and spasum with cought Exam stabl e plan will start flexoral and begin anticoagulation ortho consult in progress Improving VS good plan will DC IV fluid, give colace and advance diet, and give ativan small does start PT. pt improved somewhat VS stable she is constipated lung stable but has decrease ins saturations will place sepap andfollow with night time saturations will change pain meds to percocet to see if I can wean of dilauid ass improving discharge summary dictated [facility]
--- NOTE | 2018-02-17 19:46 | DISCH ---
ADMISSION DATE: 02/13/2018 DISCHARGE DATE: 02/17/2018 HISTORY OF PRESENT ILLNESS: This is a 57-year-old, who was riding a horse in [facility], where the horse shied, and she was thrown off to the ground on her right shoulder. There was some evidence of some amnesia around the event, possible head trauma. She was brought in by helicopter, where she was evaluated by ATS protocol with CT of head, neck, and chest, and this demonstrated fractured ribs 3 to 4 on the right with a clavicle fracture. No pneumothorax. Head CT was unremarkable. PHYSICAL EXAMINATION: GENERAL: The patient's exam at the time of admission revealed an alert and cooperative female. EYES, EARS, NOSE, AND THROAT: Unremarkable. NECK: Supple. LUNGS: Clear. HEART TONES: Regular rate. ABDOMEN: Soft. EXTREMITIES: Upper extremities show pain around the right shoulder with a fractured clavicle and chest wall tenderness. Left side was unremarkable. Lower extremities negative. HOSPITAL COURSE: The patient was placed in the hospital with a swath and sling of her right shoulder. This was on the , and she was given IV pain medication, short course of Toradol and oral pain medication and gradually her pain subsided where she could be discharged on Percocet. Her progress was followed by chest x-ray showing stable lungs, and Orthopedics did see her clavicle fracture and believed that treated with swath and sling it would eventually heal. The patient at the time of her discharge was up and ambulating. Pain was well controlled with Percocet. She was having bowel movements. Eating well. She had reached maximum hospital benefit, was discharged back home to the care of a nurse practitioner, Siddhartha, and will follow up in [place], [place]. DISCHARGE DIAGNOSES: 1. Head trauma, resolved. 2. Fractured ribs on the right, nondisplaced, 3, 4, and 5. 3. Fractured clavicle. PLAN: To discharge the patient on a regular diet. No work. Medications as per her routine medications prior to surgery and the Percocet and bowel softeners. Her condition on discharge has improved. Appointment with Siddhartha as directed by the patient herself. She will have a regular diet. FINAL DIAGNOSIS: DISCHARGE MEDICATIONS: DIET: ACTIVITY: FOLLOW-UP: CONDITION ON DISCHARGE: MMODAL /[id number]
--- NOTE | 2018-02-19 08:50 | DISCH ---
ADMISSION DATE: 02/13/2018 DISCHARGE DATE: 02/17/2018 ADDENDUM: CONDITION ON DISCHARGE: Improved. MMODAL /[id number]
== END 2018-02-17 12:12 | disposition home or self-care (01) | DRG 184 ==
LOC: JD.ED 17:00 → JD.MS 20:11
PROVIDERS: ADMIT Surgery; ATTEND Surgery
DX: S22.41XA Multiple fractures of ribs, right side, initial encounter for closed fracture (principal); S06.0X9A Concussion with loss of consciousness of unspecified duration, initial encounter; Z68.41 Body mass index [BMI] 40.0-44.9, adult; S00.03XA Contusion of scalp, initial encounter; S42.021A Displaced fracture of shaft of right clavicle, initial encounter for closed fracture; R41.3 Other amnesia; V80.010A Animal-rider injured by fall from or being thrown from horse in noncollision accident, initial encounter; E66.9 Obesity, unspecified; G25.81 Restless legs syndrome; G47.00 Insomnia, unspecified; D50.9 Iron deficiency anemia, unspecified; G47.30 Sleep apnea, unspecified; K21.9 Gastro-esophageal reflux disease without esophagitis; F41.9 Anxiety disorder, unspecified; F32.9 Major depressive disorder, single episode, unspecified; K59.00 Constipation, unspecified; Z98.84 Bariatric surgery status; Z98.891 History of uterine scar from previous surgery; Z90.49 Acquired absence of other specified parts of digestive tract; Z88.8 Allergy status to other drugs, medicaments and biological substances; Z79.899 Other long term (current) drug therapy
CPT/HCPCS: 36415; 70450; 70450-26; 71045; 71045-26; 71250; 71250-26; 71275; 71275-26; 72125; 72125-26; 72128; 72128-26; 73000-26-RT; 73000-RT; 73030-26-RT; 73030-RT; 80053; 82150; 85025; 85027; 93005; 94762; 96361; 96374; 96375; 96376; 97161-GP; 97165-GO; 97530-GO; 97535-GO; 99285; 99285-25; A9270-GY; J1170; J1650; J1885; J2405; J2765; J7030; J7040; J7050; J7120; Q9967